=== PATIENT | female | born 1965 | race African-American/Black ===

== ENCOUNTER 2018-02-11 05:02 | Inpatient (IN) | payer MEDICARE ==
[~2018-02-11] VITALS: Ht 165.1 cm; Wt 80.8 kg
[2018-02-11 04:00] VITALS: BP 126/58
[2018-02-11] MEDS ORDERED: KAO-TIN240 MG PO (05:08)
[2018-02-11] MEDS ORDERED: FERROUS SULFAT140 MG PO (05:09)
[2018-02-11] MEDS ORDERED: GLUCOTROL ER2.5 MG PO (05:09)
[2018-02-11] MEDS ORDERED: LISINOPRIL2.5 MG PO (05:09)
[2018-02-11] MEDS ORDERED: TOPROL XL25 MG PO ×2 (05:09→05:10)
[2018-02-11] MEDS ORDERED: PROTONIX40 MG PO (05:10)
[2018-02-11] MEDS ORDERED: JANUVIA25 MG PO (05:10)
[2018-02-11] MEDS ORDERED: PREDNISONE1 MG PO (05:10)
[2018-02-11] MEDS ORDERED: URSO250 MG PO (05:11)
[2018-02-11] MEDS ORDERED: TOPAMAX15 MG PO (05:11)
[2018-02-11 06:48] LABS: BASOPHILS 0.5 % (0-2); EOSINOPHILS 1.8 % (0-7); HEMOGLOBIN 12.7 g/dL (12-16); IMMATURE GRANULOCYTES 2.1 % (0-5); LYMPHOCYTES 14.6 % (15-50); MCH 31.8 pg (26.0-34.0); MCHC 34.3 g/dL (31.0-37.0); MCV 92.5 fL (80.0-100.0); MEAN PLATELET VOLUME 13.2 fL (7.4-10.4); MONOCYTES 9.8 % (2-11); NEUTROPHILS 71.2 % (40-80); PLATELET COUNT 85 10x3/uL (130-400); RDW 14.5 % (11.5-14.5); WBC 6.1 10x3/uL (4.8-10.8)
[2018-02-11 07:30] LABS: PLATELET ESTIMATE DECREASED
[2018-02-11 07:31] LABS: ALBUMIN 2.9 g/dL (3.4-5.0); ALKALINE PHOSPHATASE 254 U/L (46-116); ALT (SGPT) 134 U/L (10-68); BILIRUBIN - TOTAL 1.34 mg/dL (0.2-1.3); CALC OSMOLALITY 277 mosm/kg (275-300); CALCIUM 8.1 mg/dL (8.5-10.1); CARBON DIOXIDE 21.8 mmol/L (21.0-32.0); CHLORIDE - SERUM 109 mmol/L (98-107); CREATININE - SERUM 0.5 mg/dL (0.6-1.3); GLUCOSE 75 mg/dL (74-106); POTASSIUM - SERUM 3.1 mmol/L (3.5-5.1); SODIUM 141 mmol/L (136-145); UREA NITROGEN 7 mg/dL (7-18); eGFR NON AFRICAN AMERICAN > 90 mL/min (90-120)
[2018-02-11 07:39] LABS: LIPASE 224 U/L (73-393); PRO BNP 36 pg/mL (0-125); TROPONIN-I < 0.017 ng/mL (0.000-0.060)
[2018-02-11] MEDS ORDERED: METOPROLOL TART25 MG PO (07:54)
[2018-02-11 07:57] VITALS: BP 157/79; BMI 28.3
[2018-02-11 08:47] VITALS: BP 126/58
[2018-02-11 14:11] VITALS: BMI 28.2
[2018-02-11 15:07] VITALS: Ht 165.1 cm; Wt 80.8 kg
[2018-02-11 17:23] LABS: CKMB 0.4 U/L (0.0-3.6); CREATINE KINASE 32 UL (21-215); TROPONIN-I < 0.017 ng/mL (0.000-0.060)
[2018-02-11 17:26] VITALS: BP 114/60
[2018-02-11 20:00] VITALS: BP 124/60
[2018-02-11 21:03] LABS: CKMB 0.3 U/L (0.0-3.6); CREATINE KINASE 35 UL (21-215); TROPONIN-I < 0.017 ng/mL (0.000-0.060)
[2018-02-12] VITALS: BP 116/57
[2018-02-12 04:50] LABS: BASOPHILS 0.2 % (0-2); EOSINOPHILS 0.4 % (0-7); HEMATOCRIT 36.2 % (36.0-48.0); HEMOGLOBIN 12.2 g/dL (12-16); IMMATURE GRANULOCYTES 2.5 % (0-5); LYMPHOCYTES 6.2 % (15-50); MCH 31.2 pg (26.0-34.0); MCHC 33.7 g/dL (31.0-37.0); MCV 92.6 fL (80.0-100.0); MEAN PLATELET VOLUME 13.3 fL (7.4-10.4); NEUTROPHILS 82.7 % (40-80); PLATELET COUNT 73 10x3/uL (130-400); RBC 3.91 10x6/uL (4.00-5.40); RDW 14.4 % (11.5-14.5); WBC 5.1 10x3/uL (4.8-10.8)
[2018-02-12 05:23] LABS: ALBUMIN 2.8 g/dL (3.4-5.0); ALKALINE PHOSPHATASE 266 U/L (46-116); ALT (SGPT) 123 U/L (10-68); BILIRUBIN - TOTAL 1.36 mg/dL (0.2-1.3); CALCIUM 8.1 mg/dL (8.5-10.1); CARBON DIOXIDE 26.5 mmol/L (21.0-32.0); CHLORIDE - SERUM 101 mmol/L (98-107); CHOLESTEROL, TOTAL 231 mg/dL (0-200); CKMB 0.6 U/L (0.0-3.6); CREATINE KINASE 32 UL (21-215); HDL CHOLESTEROL 76 mg/dL (32-96); LDL CHOLESTEROL 129 mg/dL (0-100); LDL-HDL RATIO 1.7 ratio (1.5-3.5); PROTEIN - SERUM 6.8 g/dL (6.4-8.2); SODIUM 135 mmol/L (136-145); TRIGLYCERIDE 130 mg/dL (30-200); UREA NITROGEN 8 mg/dL (7-18)
[2018-02-12 05:31] LABS: CALC OSMOLALITY 278 mosm/kg (275-300); CREATININE - SERUM 0.7 mg/dL (0.6-1.3); GLUCOSE 296 mg/dL (74-106); POTASSIUM - SERUM 4.3 mmol/L (3.5-5.1); TROPONIN-I < 0.017 ng/mL (0.000-0.060); eGFR NON AFRICAN AMERICAN > 90 mL/min (90-120)
[2018-02-12 08:33] VITALS: BP 127/82
[2018-02-12 11:14] LABS: HEPATITIS C ANTIBODY <0.1 (0.0-0.9)
[2018-02-12 11:43] VITALS: BP 135/68
[2018-02-12 15:42] VITALS: BP 142/74
[2018-02-12 20:23] VITALS: BP 120/61
[2018-02-13 00:47] VITALS: BP 132/75
[2018-02-13 06:01] VITALS: BP 114/58
[2018-02-13 06:29] LABS: BASOPHILS 0.9 % (0-2); HEMATOCRIT 36.5 % (36.0-48.0); HEMOGLOBIN 12.4 g/dL (12-16); IMMATURE GRANULOCYTES 5.4 % (0-5); LYMPHOCYTES 13.3 % (15-50); MCH 31.6 pg (26.0-34.0); MCV 93.1 fL (80.0-100.0); NEUTROPHILS 67.4 % (40-80); RBC 3.92 10x6/uL (4.00-5.40); RDW 14.6 % (11.5-14.5); WBC 4.5 10x3/uL (4.8-10.8)
[2018-02-13 06:45] LABS: PLATELET COUNT 95 10x3/uL (130-400)
[2018-02-13 06:53] LABS: ALKALINE PHOSPHATASE 255 U/L (46-116); ALT (SGPT) 114 U/L (10-68); CALCIUM 8.2 mg/dL (8.5-10.1); CARBON DIOXIDE 26.2 mmol/L (21.0-32.0); CHLORIDE - SERUM 105 mmol/L (98-107); CREATININE - SERUM 0.6 mg/dL (0.6-1.3); SODIUM 138 mmol/L (136-145); UREA NITROGEN 8 mg/dL (7-18); eGFR NON AFRICAN AMERICAN > 90 mL/min (90-120)
[2018-02-13 06:56] LABS: CALC OSMOLALITY 277 mosm/kg (275-300); GLUCOSE 164 mg/dL (74-106); POTASSIUM - SERUM 3.1 mmol/L (3.5-5.1)
[2018-02-13 08:08] VITALS: BP 106/53
[2018-02-13 09:12] LABS: APPEARANCE CLEAR (CLEAR); BILIRUBIN NEGATIVE (NEGATIVE); COLOR YELLOW (YELLOW); GLUCOSE 250 mg/dL (NEGATIVE); KETONE NEGATIVE (NEGATIVE); NITRITE NEGATIVE (NEGATIVE); PROTEIN NEGATIVE (NEGATIVE); UROBILINOGEN NORMAL (NORMAL)
[2018-02-13 10:41] VITALS: BP 121/66
[2018-02-13 15:25] VITALS: BP 118/65
[2018-02-13 20:22] VITALS: BP 138/72
[2018-02-14 00:20] VITALS: BP 119/53
[2018-02-14 05:42] LABS: HEMATOCRIT 33.7 % (36.0-48.0); HEMOGLOBIN 11.6 g/dL (12-16); MCHC 34.4 g/dL (31.0-37.0); MCV 93.1 fL (80.0-100.0); MEAN PLATELET VOLUME 13.5 fL (7.4-10.4); PLATELET COUNT 80 10x3/uL (130-400); RBC 3.62 10x6/uL (4.00-5.40); RDW 14.5 % (11.5-14.5)
[2018-02-14 05:53] VITALS: BP 114/57
[2018-02-14 05:56] LABS: WBC 2.8 10x3/uL (4.8-10.8)
[2018-02-14 06:00] LABS: ALBUMIN 2.7 g/dL (3.4-5.0); ALKALINE PHOSPHATASE 232 U/L (46-116); ALT (SGPT) 112 U/L (10-68); BILIRUBIN - TOTAL 1.08 mg/dL (0.2-1.3); CALCIUM 8.2 mg/dL (8.5-10.1); CARBON DIOXIDE 27.7 mmol/L (21.0-32.0); CHLORIDE - SERUM 103 mmol/L (98-107); CREATININE - SERUM 0.5 mg/dL (0.6-1.3); GLUCOSE 209 mg/dL (74-106); POTASSIUM - SERUM 3.1 mmol/L (3.5-5.1); PROTEIN - SERUM 6.4 g/dL (6.4-8.2); SODIUM 136 mmol/L (136-145); eGFR NON AFRICAN AMERICAN > 90 mL/min (90-120)
[2018-02-14 06:04] LABS: CALC OSMOLALITY 274 mosm/kg (275-300); UREA NITROGEN 5 mg/dL (7-18)
[2018-02-14 06:42] LABS: BASOPHILS 1 % (0-2); EOSINOPHILS 2 % (0-7); LYMPHOCYTES 20 % (15-50); MONOCYTES 11 % (2-11); NEUTROPHILS 64 % (40-80); PLATELET ESTIMATE DECREASED
[2018-02-14 08:33] VITALS: BP 122/69; BP 128/74
[2018-02-14 12:55] VITALS: BP 137/72
[2018-02-14 15:38] VITALS: BP 105/68
== END 2018-02-14 18:32 | disposition home or self-care (01) | DRG 442 ==
LOC: D.ER 05:02 → D.M2 05:57
PROVIDERS: Family Medicine; Internal Medicine Gastroenterology; Internal Medicine Nephrology
DX: I81 Portal vein thrombosis (principal); B19.10 Unspecified viral hepatitis B without hepatic coma; I85.10 Secondary esophageal varices without bleeding; D69.6 Thrombocytopenia, unspecified; I10 Essential (primary) hypertension; E11.65 Type 2 diabetes mellitus with hyperglycemia; K74.60 Unspecified cirrhosis of liver; R91.1 Solitary pulmonary nodule